=== PATIENT | male | born 1970 | race African-American/Black ===

== ENCOUNTER 2021-12-08 09:08 | Emergency (ER) | payer SELFPAY ==
[2021-12-08 09:14] VITALS: PULSE 63; RESP 30; TEMP 36.1; O2SAT 98; BMI 21.7
--- NOTE | 2021-12-08 09:17 | ED_ITS ---
HPI - Nausea/Vomiting/Diarrhea General: Chief complaint: Nausea/Vomiting/Diarrhea Stated complaint: NAUSEA/ VOMITING/ ABDOMINAL PAIN Time Seen by Provider: 12/08/21 09:10 History of Present Illness: 51-year-old male presents with intractable nausea and vomiting. Patient has a history of cyclic nausea and vomiting. Patient is a truck loader and unloader and was seen yesterday in [facility] for similar complaint. Patient admits to smoking marijuana 2 blunts yesterday. Patient has some ab dominal burning. Patient is mainly having dry heaves with very minimal actual vomiting. No reports of fever or chills. Associated nausea: Yes Associated symtoms: Reports nausea; Denies chest pain, headache(s) or palpitations Review of Systems Const: Denies: fever(s) or chills Card: Denies: chest pain or palpitations Resp: Denies: dyspnea or productive cough GI: Reports: abdominal pain, nausea and vomiting; Denies: diarrhea : Denies: flank pain or difficulty urinating Musc: Denies: extremity pain Skin/Breast: Denies: rash or pruritus Neuro: Denies: headache(s) or numbness in extremities Physical Exam Const: COMMON NORMALS: patient oriented x3 GENERAL APPEARANCE: other (Patient with dry heaves); not lethargic and not ill appearing ORIENTATION/CONSCIOUSNESS: not lethargic Resp: COMMON NORMALS: normal respiratory effort and No retractions Cardio: COMMON NORMALS: regular rate and regular rhythm RATE: regular rate RHYTHM: regular rhythm GI: COMMON NORMALS: Soft to palpation INSPECTION: Yes normal to inspection and No abdominal distension PALPATION: Yes Soft to palpation and Yes Tenderness to palpation present (GI) Details: other (Mild lower abdomen) Extremity: COMMON NORMALS: normal to inspection and full ROM Neuro: COMMON NORMALS: patient oriented x3, CN's II-XII intact bilaterally and moves all extremities SENSORIUM/ORIENTATION: No lethargic Psych: COMMON NORMALS: mental status grossly normal, Normal thought process present and cooperative APPEARANCE: Yes grossly normal THOUGHT PROCESS: Normal thought process present Skin: COMMON NORMALS: no rashes or lesions noted GENERAL SKIN EXAM: no rashes or lesions noted Course Vital Signs: Vital signs: Vital Signs Temperature 97 F L 12/08/21 09:14 Pulse Rate 63 12/08/21 09:14 Respiratory Rate 30 H 12/08/21 09:14 Pulse Oximetry 98 12/08/21 09:14 MDM - Nausea/Vomiting/Diarrhea Medical Decision Making Patient's retching improved with treatment. Patient never had any vomiting while here in the ER. Patient was able to stop the retching on demand when told he cannot have anything to eat or drink until his symptoms improved. Patient symptoms very consistent with cannabis hyperemesis syndrome. I will provide him with some Zofran and he will be discharged home. I did discuss with him that until he chooses to quit using marijuana he will continue to have episodic cyclic vomiting syndrome. Lab Data : 12/08/21 09:10 12/08/21 09:10 Laboratory Results WBC 8.0 10^3/uL (4.0-10.0) 12/08/21 09:10 RBC 4.83 10^6/uL (4.1-5.3) 12/08/21 09:10 Hgb 14.5 g/dL (11.7-16.6) 12/08/21 09:10 Hct 41.5 % (42.0-52.0) L 12/08/21 09:10 MCV 85.9 fl (80-94) 12/08/21 09:10 MCH 30.0 pg (28.0-34.0) 12/08/21 09:10 MCHC 34.9 g/dL (30.0-36.0) 12/08/21 09:10 RDW 15.3 % (12.1-15.1) H 12/08/21 09:10 Plt Count 220 10^3/cmm (130-400) 12/08/21 09:10 MPV 11.1 fL (7.4-10.4) H 12/08/21 09:10 Neut % (Auto) 63.4 % 12/08/21 09:10 Lymph % (Auto) 29.6 % 12/08/21 09:10 [place] % (Auto) 6.6 % 12/08/21 09:10 Eos % (Auto) 0.1 % 12/08/21 09:10 Baso % (Auto) 0.1 % 12/08/21 09:10 Neut # (Auto) 5.07 10^3/uL (1.8-7.7) 12/08/21 09:10 Lymph # (Auto) 2.4 10^3/uL (0.8-4.8) 12/08/21 09:10 [place] # (Auto) 0.5 10^3/uL (0.2-0.9) 12/08/21 09:10 Eos # (Auto) 0.0 10^3/uL (0.0-0.8) 12/08/21 09:10 Baso # (Auto) 0.0 10^3/uL (0.0-0.1) 12/08/21 09:10 Nucleated RBC % (auto) 0 % 12/08/21 09:10 Nucleated RBCs # 0.0 /100WBC 12/08/21 09:10 Sodium 139 mmol/L (136-145) 12/08/21 09:10 Potassium 3.9 mmol/L (3.5-5.1) 12/08/21 09:10 Chloride 103 mmol/L (98-107) 12/08/21 09:10 Carbon Dioxide 22 mmol/L (22-29) 12/08/21 09:10 Anion Gap 17.9 (5-19) 12/08/21 09:10 BUN 15 mg/dL (6-20) 12/08/21 09:10 Creatinine 1.2 mg/dL (0.7-1.2) 12/08/21 09:10 GFR Calculation 76.9 mL/min (90-130) L 12/08/21 09:10 Glucose 106 mg/dL (65-115) 12/08/21 09:10 Calculated Osmolality 289 mOsm/kg (285-295) 12/08/21 09:10 Calcium 8.9 mg/dL (8.5-10.5) 12/08/21 09:10 Total Bilirubin 0.3 mg/dL (0.15-1.2) 12/08/21 09:10 AST 29 U/L (0-40) 12/08/21 09:10 ALT 29 U/L (0-41) 12/08/21 09:10 Alkaline Phosphatase 63 IU/L (40-130) 12/08/21 09:10 Total Protein 6.9 g/dL (6.6-8.7) 12/08/21 09:10 Albumin 4.3 g/dL (3.5-5.2) 12/08/21 09:10 Globulin 2.6 g/dL (1.3-4.6) 12/08/21 09:10 Lipase 24 U/L (13-60) 12/08/21 09:10 Urine Color Yellow (Yellow) 12/08/21 10:00 Urine Appearance Clear (CLEAR) 12/08/21 10:00 Urine pH 8 (5-7) H 12/08/21 10:00 Ur Specific [place] 1.015 (1.005-1.030) 12/08/21 10:00 Urine Protein Neg (Negative) 12/08/21 10:00 Urine Glucose (UA) Norm (Normal) 12/08/21 10:00 Urine Ketones Negative (Negative) 12/08/21 10:00 Urine Blood Neg (Negative) 12/08/21 10:00 Urine Nitrate Negative (Negative) 12/08/21 10:00 Urine Bilirubin Neg (Negative) 12/08/21 10:00 Prot Sulfosalicylic Acd Negative (Negative) 12/08/21 10:00 Urine Urobilinogen Norm mg/dL (Negative) 12/08/21 10:00 Ur Leukocyte Esterase Negative (Negative) 12/08/21 10:00 Discharge Plan Discharge Patient Disposition: Home Clinical Impression: Cannabis hyperemesis syndrome concurrent with and due to cannabis abuse Condition: Stable Prescriptions: New ondansetron 4 mg tablet,disintegrating 4 mg PO Q8H PRN (Reason: nausea and vomiting) Qty: 10 0RF Discharge Orders: Discharge ED (Routine); Ordered 12/08/21 Ordered By: Santiago Valerio Discharge Diet: Advance as tolerated and Clear Liquid Discharge Activity: Increase activity as tolerated Patient Instructions: Opioid Safety, Cyclic Vomiting Syndrome (ED), Cannabis Use Disorder (ED) Coding Level of Care Code ED [employer]ptor for Adrienneg Fwd Exam Comprehensive
[2021-12-08] MEDS: diphenhydrAMINE 50 mg/mL SDV 1mL IVP (09:25)
[2021-12-08] MEDS: haloperidol inj 5 mg/mL INJ 1 mL IVP (09:27)
[2021-12-08] MEDS: sodium chloride 0.9% 1,000 ML 999 ML IV (09:28)
[2021-12-08 09:53] LABS: Basophils % 0.1 %; Eosinophils % 0.1 %; Hematocrit 41.5 % (42.0-52.0); Hemoglobin 14.5 g/dL (11.7-16.6); Lymphocytes # 2.4 10^3/uL (0.8-4.8); Lymphocytes % 29.6 %; Mean Corpuscular HGB Conc 34.9 g/dL (30.0-36.0); Mean Corpuscular Volume 85.9 fl (80-94); Mean Platelet Volume 11.1 fL (7.4-10.4); Monocytes # 0.5 10^3/uL (0.2-0.9); Monocytes % 6.6 %; Neutrophils # 5.07 10^3/uL (1.8-7.7); Neutrophils % 63.4 %; Nucleated Red Blood Cells % 0 %; Platelet Count 220 10^3/cmm (130-400); Red Blood Count 4.83 10^6/uL (4.1-5.3); Red Cell Distribution Width 15.3 % (12.1-15.1)
[2021-12-08 10:10] LABS: Alanine Aminotransferase 29 U/L (0-41); Albumin Level 4.3 g/dL (3.5-5.2); Alkaline Phosphatase 63 IU/L (40-130); Anion Gap 17.9 (5-19); Aspartate Amino Transferase 29 U/L (0-40); Blood Urea Nitrogen 15 mg/dL (6-20); Calcium 8.9 mg/dL (8.5-10.5); Carbon Dioxide 22 mmol/L (22-29); Chloride 103 mmol/L (98-107); Globulin 2.6 g/dL (1.3-4.6); Glomerular Filtration Rate 76.9 mL/min (90-130); Glucose 106 mg/dL (65-115); Lipase 24 U/L (13-60); Osmolality Calculated 289 mOsm/kg (285-295); Potassium 3.9 mmol/L (3.5-5.1); Sodium 139 mmol/L (136-145); Total Bilirubin 0.3 mg/dL (0.15-1.2); Total Protein 6.9 g/dL (6.6-8.7)
[2021-12-08 10:39] LABS: Add Urine Microscopic? NO; Charge for UA Resulting for Rev
[2021-12-08 11:20] LABS: Bilirubin Urine Neg (Negative); Blood Urine Neg (Negative); Glucose Urine UA Norm (Normal); Ketones Urine Negative (Negative); Leukocyte Esterase Urine Negative (Negative); Nitrate Urine Negative (Negative); Protein Urine Neg (Negative); Specific Gravity, Urine 1.015 (1.005-1.030); Sulfosalicylic Acid Urine Negative (Negative); Urine Appearance Clear (CLEAR); Urine Color Yellow (Yellow); Urobilinogen Urine Norm (Negative); pH Urine 8 (5-7)
== END 2021-12-08 11:46 | disposition home or self-care (01) ==
PROVIDERS: Emergency Provider Student in an Organized Health Care Education/Training Program
DX: F12.10 Cannabis abuse, uncomplicated (principal); R11.10 Vomiting, unspecified
CPT/HCPCS: 80053; 81003; 83690; 85025; 96374; 96375; 99284; J1200; J1630; J7030